=== PATIENT | male | born 1955 | race Caucasian/White ===

== ENCOUNTER → 2016-06-12 | Outpatient (CLI) | payer OTHER ==
[~2016-06-12] MED LIST: MRPIS2 IV; XPNIN INH; ZFRI4 IV
[2016-06-12 17:35] LABS: BASO % 0.4 %; BASO ABS # 0.04 K/uL (0-0.2); COMPLETE YES; EOS % 2.3 %; HEMATOCRIT 44.7 % (42-52); IG% 0.4 %; LYMPH % 34.4 %; LYMPH ABS # 3.14 K/uL (1.2-3.4); MEAN CELL VOLUME 86.3 fL (80-100); MEAN CORPUSCULAR HEMOGLOBIN 29.7 pg (25-34); MEAN CORPUSCULAR HGB CONC 34.5 g/dl (32-36); MEAN PLATELET VOLUME 10.4 fL (7.4-10.4); MONO % 10.8 %; NEUT % 51.7 %; PLATELET COUNT 238 K/uL (130-400); RED BLOOD COUNT 5.18 M/uL (4.7-6.1); WHITE BLOOD COUNT 9.13 K/uL (4.8-10.8)
[2016-06-12 17:53] LABS: ALT/SGPT 64 U/L (12-78); AST/SGOT 43 U/L (15-37); BLOOD UREA NITROGEN 15 mg/dl (7-18); BUN/CREATININE RATIO 12.7 (10-20); CALCIUM 9.4 mg/dl (8.5-10.1); CARBON DIOXIDE 27 mmol/L (21-32); CHLORIDE 106 mmol/L (98-107); GLUCOSE 95 mg/dl (70-99); POTASSIUM 4.1 mmol/L (3.5-5.1); SODIUM 138 mmol/L (136-145)
[2016-06-12 18:04] LABS: ALB/GLOB RATIO 1.1 (0.9-2); ALKALINE PHOSPHATASE 88 U/L (45-117); CHOLESTEROL 201 mg/dl (0-200); CHOLESTEROL/HDL RATIO 3.9; HDL CHOLESTEROL 52 mg/dl; LDL CHOLESTEROL CALCULATED 117 mg/dl; TRIGLYCERIDES 162 mg/dl (0-150); VERY LOW DENSITY LIPOPROT CALC 32 mg/dl
[2016-06-13 07:25] LABS: ESTIMATED AVERAGE GLUCOSE 108 mg/dl; HA1C FLAG Normal (Normal)
== END | disposition home or self-care (01) ==
LOC: C.LABBFT 13:14
PROVIDERS: ATTEND Internal Medicine
DX: K76.0 Fatty (change of) liver, not elsewhere classified (principal); R03.0 Elevated blood-pressure reading, without diagnosis of hypertension; R79.9 Abnormal finding of blood chemistry, unspecified; R73.01 Impaired fasting glucose; E11.9 Type 2 diabetes mellitus without complications; E78.5 Hyperlipidemia, unspecified; Z12.5 Encounter for screening for malignant neoplasm of prostate; E87.6 Hypokalemia

== ENCOUNTER 2017-04-14 23:18 | Emergency (ER) | payer OTHER ==
[~2017-04-14] VITALS: Ht 175.3 cm; Wt 90.3 kg
[2017-04-14 23:20] VITALS: Ht 175.3 cm; Wt 90.3 kg
[2017-04-14] MEDS ORDERED: ONDANSETRON INJ 2 MG/ML 2 ML VIAL IV STA (23:40)
[2017-04-14] MEDS ORDERED: SODIUM CHLORIDE 0.9% 500ML 500 ML IV STA (23:40)
[2017-04-14] MEDS ORDERED: MoRPHine SULFATE 4 MG/ML 1 ML CARP\\VIAL IV STA (23:40)
[2017-04-15] MEDS ORDERED: OPTIRAY 320 IV PRN
[2017-04-15 00:04] LABS: BASO % 0.3 %; BASO ABS # 0.05 K/uL (0-0.2); EOS % 0.1 %; EOS ABS # 0.02 K/uL (0-0.5); HEMATOCRIT 46.3 % (42-52); HEMOGLOBIN 16.2 g/dL (14.0-18.0); LYMPH % 8.3 %; LYMPH ABS # 1.63 K/uL (1.2-3.4); MEAN CELL VOLUME 85.3 fL (80-100); MEAN CORPUSCULAR HEMOGLOBIN 29.8 pg (25-34); MEAN PLATELET VOLUME 10.2 fL (7.4-10.4); MONO % 5.9 %; MONO ABS # 1.17 K/uL (0.11-0.59); NEUT % 84.9 %; NEUT ABS # 16.73 K/uL (1.4-6.5); PLATELET COUNT 241 K/uL (130-400); RED CELL DISTRIBUTION WIDTH CV 13.3 % (11.5-14.5); RED CELL DISTRIBUTION WIDTH SD 41.5 fL (36.4-46.3)
[2017-04-15 00:11] LABS: ISTAT CREATININE 1.2 mg/dl (0.6-1.3); ISTAT IONIZED CALCIUM 1.26 mmol/l (1.12-1.32); ISTAT POTASSIUM 3.8 mEq/L (3.3-5.0)
[2017-04-15] MEDS ORDERED: HYDROmorphone INJ 1 MG/ML SYR IV STA ×3 (00:18→01:59)
[2017-04-15] MEDS ORDERED: HYDROmorphone INJ 1 MG/ML SYR ONE (00:18)
[2017-04-15] MEDS ORDERED: HydrALAZINE HCL 20 MG/ML VIAL IV. STA ×2 (00:19→01:25)
[2017-04-15 00:22] LABS: PTT PATIENT 26.6 SECONDS (21.0-31.0)
[2017-04-15 00:27] LABS: ALBUMIN 4.5 gm/dl (3.4-5.0); ALT/SGPT 63 U/L (12-78); AST/SGOT 34 U/L (15-37); BLOOD UREA NITROGEN 15 mg/dl (7-18); CALCIUM 9.6 mg/dl (8.5-10.1); CARBON DIOXIDE 26 mmol/L (21-32); CREATININE 1.27 mg/dl (0.60-1.40); GLUCOSE 141 mg/dl (70-99); LIPASE 90 U/L (73-393); SODIUM 135 mmol/L (136-145)
[2017-04-15 00:32] LABS: ALKALINE PHOSPHATASE 81 U/L (45-117); TOTAL PROTEIN 8.3 gm/dl (6.4-8.2)
[2017-04-15] MEDS ORDERED: SITA100T3 PO (00:43)
[2017-04-15] MEDS ORDERED: PANT40TA PO (00:44)
[2017-04-15] MEDS ORDERED: PANTOprazole INJ 40 MG in SYRINGE 0 ML IV ONE (01:30)
[2017-04-15] MEDS ORDERED: SODIUM CHLORIDE 0.9% 1000ML 1,000 ML IV STA ×2 (01:37→02:18)
[2017-04-15] MEDS ORDERED: ONDANSETRON INJ 2 MG/ML 2 ML VIAL IV STA (01:59)
--- NOTE | 2017-04-15 02:11 | EMERGENCY ROOM VISIT NOTE ---
History First contact with patient: 23:35 Chief Complaint: ABDOMINAL PAIN Stated Complaint: SEVERE ABD PAIN,RADIATING TO BACK,NAUSEA Nursing Triage Summary: Pt reports diffuse abdominal pain that radiates into his back starting at 1600 today while sweeping. Denies N,V, and diarrhea. Hx of diverticulitis with abcess and was hospitalized for 6mo in [place]. Last BM today and was 'normal'. Took two vicodin at 1900. History of Present Illness The patient is a 61 year old male who presents to the Emergency Room with complaints of severe epigastric pain since 4 PM that radiates to his back with diaphoresis. Patient has a history of esophageal rupture with abscess. This feels somewhat similar. Pain currently 10 out of 10. Nothing makes it better or worse. Patient states he just finished eating a fiber one gummy when the symptoms started this afternoon. There is no trauma to the region. No prior heart disease. He had a surgery done at [facility] by Dr. Escalera. He was hospitalized for several months in February 2014. Patient does have diabetes. No heart disease. No recent endoscopy. He takes Protonix 40 mg twice daily. Patient denies fevers, diarrhea, cold symptoms, black or blood in the stool. Review of Systems An 10 system review of systems was completed with positives and pertinent negatives listed in the HPI. Past Medical/Surgical History Medical Problems: (1) Diabetes Esophageal rupture, left lobectomy, multiple esophageal thoracic surgery secondary to the esophageal rupture, reflux Family History Diabetes mellitus Hypertension Social History Smoking Status: Current Some Day Smoker Alcohol Use: occasionally Marital Status: Housing Status: lives with significant other Occupation Status: employed Current/Historical Medications Scheduled Pantoprazole (Protonix), 40 MG PO DAILY Sitagliptin Phosphate (Januvia), 100 MG PO DAILY Physical Exam Vital Signs Date Time Temp Pulse Resp B/P (MAP) Pulse Ox O2 Delivery O2 Flow Rate FiO2 04/15/17 01:43 100 20 186/95 97 Nasal Cannula 2.0 04/15/17 01:16 89 20 189/93 97 Nasal Cannula 2.0 04/15/17 00:38 88 20 214/109 98 Room Air 04/15/17 00:18 61 04/15/17 00:17 60 20 223/120 96 Room Air 04/14/17 23:20 36.5 51 18 212/85 98 Room Air Physical Exam VITALS: Vitals are noted on the nurse's note and reviewed by myself. Vital signs hypertensive GENERAL: Pleasant male in obvious pain, in no acute distress, nondiaphoretic, well-developed well-nourished. SKIN: The skin was without rashes, erythema, edema, or bruising. There is no tenting of the skin. Capillary reflex less than 2 seconds. HEAD: Normocephalic atraumatic. EARS: External auditory canals clear, tympanic membranes pearly marie without erythema or effusion bilaterally. EYES: Pupils equal round and reactive to light and accommodation. Conjunctivae without injection, sclerae without icterus. Extraocular movements intact. NOSE: Patent, turbinates without inflammation or discharge. MOUTH: Mucous membranes moist. Pharynx without erythema or exudate. Uvula midline. Airway patent. Tongue does not deviate. NECK: Supple without nuchal rigidity. No lymphadenopathy. No thyromegaly. Cervical spine is nontender. No JVD. HEART: Regular rate and rhythm LUNGS: Clear to auscultation bilaterally without wheezes, rales or rhonchi. No dullness to percussion. No retractions or accessory muscle use. ABDOMEN: Positive bowel sounds x 4. Normal tympanic percussion. Soft, tender to palpation epigastric region, no CVA tenderness, without masses or organomegaly. Bradford sign negative. No guarding or rebound tenderness. MUSCULOSKELETAL: No muscle atrophy, erythema, or edema noted. +2 peripheral pulses throughout NEURO: Patient was alert and oriented to person place and time. Normal sensation to light and sharp touch. No focal neurological deficits. Medical Decision & Procedures Laboratory Results 04/14/17 23:53 Red Blood Count 5.43, Mean Corpuscular Volume 85.3, Mean Corpuscular Hemoglobin 29.8, Mean Corpuscular Hemoglobin Concent 35.0, Mean Platelet Volume 10.2, Neutrophils (%) (Auto) 84.9, Lymphocytes (%) (Auto) 8.3, Monocytes (%) (Auto) 5.9, Eosinophils (%) (Auto) 0.1, Basophils (%) (Auto) 0.3, Neutrophils # (Auto) 16.73, Lymphocytes # (Auto) 1.63, Monocytes # (Auto) 1.17, Eosinophils # (Auto) 0.02, Basophils # (Auto) 0.05 04/14/17 23:53 Test 04/14/17 23:53 04/14/17 23:54 04/14/17 23:56 04/14/17 23:59 White Blood Count 19.70 K/uL (4.8-10.8) Red Blood Count 5.43 M/uL (4.7-6.1) Hemoglobin 16.2 g/dL (14.0-18.0) Hematocrit 46.3 % (42-52) Mean Corpuscular Volume 85.3 fL (80-100) Mean Corpuscular Hemoglobin 29.8 pg (25-34) Mean Corpuscular Hemoglobin Concent 35.0 g/dl (32-36) Platelet Count 241 K/uL (130-400) Mean Platelet Volume 10.2 fL (7.4-10.4) Neutrophils (%) (Auto) 84.9 % Lymphocytes (%) (Auto) 8.3 % Monocytes (%) (Auto) 5.9 % Eosinophils (%) (Auto) 0.1 % Basophils (%) (Auto) 0.3 % Neutrophils # (Auto) 16.73 K/uL (1.4-6.5) Lymphocytes # (Auto) 1.63 K/uL (1.2-3.4) Monocytes # (Auto) 1.17 K/uL (0.11-0.59) Eosinophils # (Auto) 0.02 K/uL (0-0.5) Basophils # (Auto) 0.05 K/uL (0-0.2) RDW Standard Deviation 41.5 fL (36.4-46.3) RDW Coefficient of Variation 13.3 % (11.5-14.5) Immature Granulocyte % (Auto) 0.5 % Immature Granulocyte # (Auto) 0.10 K/uL (0.00-0.02) Prothrombin Time 10.3 SECONDS (9.0-12.0) Prothromb Time International Ratio 1.0 (0.9-1.1) Activated Partial Thromboplast Time 26.6 SECONDS (21.0-31.0) Partial Thromboplastin Ratio 1.0 Est Creatinine Clear Calc Drug Dose 66.2 ml/min Estimated GFR () 69.2 Estimated GFR (Non- 59.7 BUN/Creatinine Ratio 11.7 (10-20) Calcium Level 9.6 mg/dl (8.5-10.1) Total Bilirubin 0.5 mg/dl (0.2-1) Direct Bilirubin 0.1 mg/dl (0-0.2) Aspartate Amino Transf (AST/SGOT) 34 U/L (15-37) Alanine Aminotransferase (ALT/SGPT) 63 U/L (12-78) Alkaline Phosphatase 81 U/L (45-117) Troponin I < 0.015 ng/ml (0-0.045) Total Protein 8.3 gm/dl (6.4-8.2) Albumin 4.5 gm/dl (3.4-5.0) Lipase 90 U/L (73-393) Bedside Lactic Acid Venous 2.19 mmol/L (0.90-1.70) Bedside Troponin I < 0.030 ng/ml (0-0.045) Bedside Hemoglobin 16.7 g/dl (14.0-18.0) Bedside Hematocrit 49 % (42-52) Bedside Sodium 138 mEq/L (135-144) Bedside Potassium 3.8 mEq/L (3.3-5.0) Bedside Chloride 97 mEq/L (101-112) Bedside Total CO2 28 mEq/l (24-31) Anion Gap 18.0 mmol/L (16-25) Bedside Blood Urea Nitrogen 16 mg/dl (7-18) Bedside Creatinine 1.2 mg/dl (0.6-1.3) Bedside Glucose (other) 145 mg/dl (70-99) Bedside Ionized Calcium (Lani) 1.26 mmol/l (1.12-1.32) Medications Administered Medications (Trade) Dose Ordered Sig/[facility] Route Start Time Stop Time Status Last Admin Dose Admin Morphine Sulfate (MoRPHine SULFATE INJ) 4 mg NOW STAT IV 04/14/17 23:40 04/14/17 23:45 DC 04/14/17 23:57 4 MG Ondansetron HCl (Zofran Inj) 4 mg NOW STAT IV 04/14/17 23:40 04/14/17 23:45 DC 04/14/17 23:57 4 MG Sodium Chloride 500 ml @ 999 mls/hr Q31M STAT IV 04/14/17 23:40 04/15/17 00:10 DC 04/14/17 23:40 999 MLS/HR Hydromorphone HCl (Dilaudid Inj) 1 mg STK-MED ONCE .ROUTE 04/15/17 00:18 04/15/17 00:19 DC 04/15/17 00:18 1 MG Hydralazine HCl (HydrALAZINE INJ) 10 mg NOW STAT IV. 04/15/17 00:19 04/15/17 00:20 DC 04/15/17 00:26 10 MG Hydromorphone HCl (Dilaudid Inj) 1 mg NOW STAT IV 04/15/17 00:46 04/15/17 00:47 DC 04/15/17 00:50 1 MG Pantoprazole Sodium 40 mg/ Syringe 10 ml @ 5 mls/min NOW ONCE IV 04/15/17 01:30 04/15/17 01:31 DC 04/15/17 01:33 5 MLS/MIN Hydralazine HCl (HydrALAZINE INJ) 10 mg NOW STAT IV. 04/15/17 01:25 04/15/17 01:26 DC 04/15/17 01:33 10 MG Sodium Chloride 1,000 ml @ 75 mls/hr [id number] STAT IV 04/15/17 01:37 04/15/17 14:56 04/15/17 01:37 75 MLS/HR Hydromorphone HCl (Dilaudid Inj) 1 mg NOW STAT IV 04/15/17 01:59 04/15/17 02:01 DC 04/15/17 02:07 1 MG Ondansetron HCl (Zofran Inj) 4 mg NOW STAT IV 04/15/17 01:59 04/15/17 02:01 DC 04/15/17 02:06 4 MG ED Course Prior records/ancillary studies reviewed. Triage Nursing notes reviewed. Additional history obtained from family. The patient's history was concerning for epigastric chest pain. Differential diagnosis: Etiologies such as cardiac ischemia, aortic dissection, pulmonary embolism, pneumonia, pneumothorax, musculoskeletal, infections, pericarditis, myocarditis , esophageal rupture, gastrointestinal, as well as others were entertained. Physical examination: As above. ER treatment provided: Morphine, Dilaudid, Zofran, IV fluids, Protonix, hydralazine, Zosyn, daptomycin On reassessment the patient felt better. Diagnostic interpretation by me: FAST exam: No free fluid per my interpretation The electrocardiogram was negative for pathologic change. Poor baseline, normal sinus, normal intervals, no acute ST-T wave changes, normal axis, rate 59. Impression sinus bradycardia to provide a soft The labs revealed leukocytosis, negative troponin, elevated lactic acid and repeat was slightly elevated as patient became tachycardic so repeat lactate was ordered, hyperglycemia without DKA Imaging studies: Chest x-ray with no obvious free air, consolidation or pneumothorax my interpretation CTA CHEST: No aortic dissection or aneurysm. No pulmonary emboli. Severe fluid distention of the entire esophagus could indicate gastroesophageal reflux with esophagitis or achalasia. Postsurgical deformities are noted in the left seventh and eighth ribs. There is soft tissue pleural thickening with calcifications adjacent to the rib anomalies which could be related to postoperative changes. There is a suggestion of a small amount of fluid along the left aspect of the esophagus (series 7 image 184). It is unclear if this fluid extends to the area of pleural thickening. There is oral contrast in the stomach which does not appear to extend into this pleural thickening or possible fluid adjacent to the esophagus. The fluid may be related to inflammation. A small esophageal leak is difficult to exclude based on these findings. Consider esophagram with water-soluble contrast to exclude a tiny leak. No acute airspace opacities. CTA ABDOMEN & PELVIS: Normal abdominal aorta. No aortic dissection or aneurysm. Mild aortic atherosclerosis. No stenosis of the visceral and renal branches. Distended gallbladder with cholelithiasis. No definite gallbladder wall thickening or surrounding fat stranding. If there is concern for acute cholecystitis, consider ultrasound evaluation. No biliary dilatation. Moderate diverticulosis of the sigmoid and descending colon and transverse colon without acute diverticulitis. Cecal bascule is located in the left abdomen. Normal appendix. No bowel obstruction or bowel wall thickening. Radiologist: Gildardo Mccarty MD Consultation: A consultation was placed with the thoracic surgeon at [place], Dr. Blount. The case was discussed and diagnostics were reviewed. The patient was transferred to his facility for further evaluation and treatment for possible esophageal tear/rupture. Patient consented to transfer and was transferred via ALS in stable condition. Exam and history seem concerning for possible esophageal tear/rupture. Patient was started on antibiotics for possible infection from the esophageal tear. He was hydrated as above. Repeat lactate was ordered as patient became slightly tachycardic. Patient was in severe amount of pain. He was hypertensive. He was medicated as above. Blood pressure did improve. FAST exam showed no free fluid. CT was concerning for possible esophageal tear. [facility] was consulted where the patient's original surgery was done and Dr. Blount accepts transfer of the patient. Patient was reevaluated numerous times. He remained stable. He was not hypoxic. He was not tachycardic. He agrees to treatment plan of transfer to specialty [facility] for further evaluation and treatment. By the evaluation outlined above emergent etiologies such as cardiac ischemia, aortic dissection, pulmonary embolism, pneumonia, pneumothorax, pericarditis, myocarditis, as well as others were deemed relatively unlikely. The pt informed about the findings as listed above. All questions were answered and pleased with the treatment. Case reviewed with my attending The chart was completed utilizing [employer] voice recognition software. Grammatical errors, random word insertions, pronoun errors, and incomplete sentences are an occassional consequence of this system due to software limitations, ambient noise, and hardware issues. Any formal questions or concerns about the content, text, or information contained within the body of this dictation should be directly addressed to the physician veterinary assistant for clarification. Medical Decision As above Blood Pressure Screening Patient's blood pressure: Elevated blood pressure Blood pressure disposition: Referred to PCP Impression Primary Impression: Esophageal tear Additional Impressions: Hypertensive urgency Hyperglycemia due to type 2 diabetes mellitus Departure Information Dispostion Transfer Acute Care Facility Condition FAIR Referrals Caesar Fernandez M.D. (PCP) Patient Instructions My [facility] Problem Qualifiers Primary Impression: Esophageal tear Encounter type: initial encounter Qualified Codes: S11.21XA - Laceration without foreign body of pharynx and cervical esophagus, initial encounter
[2017-04-15] MEDS ORDERED: PIPERACILLIN/TAZOBACTAM 4.5 GM/100ML D5W IV STA (02:18)
[2017-04-15] MEDS ORDERED: DAPTOmycin IV 540 MG in SODIUM CHLORIDE 0.9% 50ML 50 ML IV STA (02:18)
[2017-04-15 03:02] VITALS: BP 180/86; PULSE 100; TEMP 36.8; O2SAT 95
--- NOTE | 2017-04-15 07:07 | DIAGNOSTIC IMAGING REPORT ---
CHEST COMBO ANGIO DISSECTION CLINICAL HISTORY: Severe chest/epigastric pain radiating to the back. COMPARISON STUDY: Chest CT dated 02/18/2014 FINDINGS: Unenhanced images were obtained to the chest. The patient was then scanned in a dynamic helical fashion during intravenous administration of 119 cc Optiray 320. MIP imaging was performed. A dose reduction technique was utilized adhering to the principles of ALARA. Unenhanced images reveal coronary artery calcifications. There is no evidence of acute aortic hematoma. Postcontrast images reveal no thyroid masses. There is no evidence of aortic aneurysm or dissection. There are no pulmonary artery filling defects to indicate acute pulmonary embolism. There are no pathologically enlarged axillary, mediastinal, or hilar lymph nodes. There is a mildly dilated fluid-filled esophagus. There is cholelithiasis. There are old left-sided rib fractures. There is left-sided pleural thickening and pleural calcification. There are dependent atelectatic changes. There is no pneumothorax. There is no lobar consolidation. IMPRESSION: 1. No evidence of thoracic aortic aneurysm or dissection 2. No evidence of pulmonary embolism 3. Mildly dilated fluid-filled esophagus 4. Multiple lower left rib deformities with associated pleural thickening and pleural calcification. Electronically signed by: Yrn Franklin M.D. 04/15/2017 7:05 AM Dictated Date/Time: 04/15/2017 7:00 AM
--- NOTE | 2017-04-15 07:08 | DIAGNOSTIC IMAGING REPORT ---
CHEST ONE VIEW PORTABLE CLINICAL HISTORY: 61 years-old Male presenting with CHEST PAIN. TECHNIQUE: Portable upright AP view of the chest was obtained. COMPARISON: 02/14/2014. FINDINGS: Mediastinal surgical clips noted. Cardiac mediastinal silhouette mildly prominent likely due to mildly low lung volumes and hypoventilatory changes. Minimal vague and linear opacities likely present at the lung bases. No other focal opacity. No large effusion or pneumothorax. Degenerative changes of the thoracic spine. Upper abdomen normal. IMPRESSION: 1. Mildly low lung volumes with hypoventilatory changes including bibasilar atelectasis. Electronically signed by: Aftab Peña M.D. 04/15/2017 7:06 AM Dictated Date/Time: 04/15/2017 7:05 AM
--- NOTE | 2017-04-15 07:43 | DIAGNOSTIC IMAGING REPORT ---
ANGIO ABD/PELVIS WITH CONTRAST CLINICAL HISTORY: 61 years-old Male presents with severe epigastric pain which radiates into the back TECHNIQUE: Noncontrast CT abdomen and pelvis was obtained and additionally following the IV administration of 119 cc of Optiray 320, CT angiogram of the abdomen and pelvis was performed from the lung bases the proximal femora. Images are reviewed in the axial, sagittal, and coronal planes. 3-D MIPS images are created and assessed. IV contrast was administered without complication. All measurements were obtained according to NASCET criteria. A dose lowering technique was utilized adhering to the principles of ALARA. CT DOSE: 1718.30 mGy.cm COMPARISON: CTA of the chest of same day, CT abdomen and pelvis 02/12/2014 FINDINGS: CTA: The CTA chest portion of the study is dictated separately. No intramural hematoma identified on the noncontrast scan. Mild atherosclerosis of the abdominal aorta and iliac arteries. There is no abdominal aortic aneurysm or dissection identified. There is mild degree of mixed plaquing at the origin of the superior mesenteric artery causing less than 50% luminal narrowing. The celiac trunk, superior and inferior mesenteric arteries are widely patent. Mild mixed plaquing is present at the origin of the right renal artery without significant narrowing. The bilateral renal arteries are widely patent. The bilateral common and external iliac arteries are widely patent. Mild to moderate degree of mixed plaque involves the bilateral femoral arteries which are widely patent as are the imaged superficial femoral arteries. The imaged IVC and iliac veins appear unremarkable. CT ABDOMEN/PELVIS: Mild subsegmental bibasilar atelectasis. Pleural thickening with pleural calcifications again noted at the level of the left lung base. Imaged inferior cardiac chambers are unremarkable. There is diffuse fatty infiltration of the liver. No focal hepatic mass lesions or intrahepatic biliary ductal dilation identified. Gallbladder is distended measuring up to 11.7 x 5.1 cm containing layering gallstones within the mid lumen and gallbladder neck. No CT evidence to suggest acute cholecystitis. Spleen, pancreas and adrenal glands are within normal limits. Mild nonspecific bilateral perinephric stranding. No renal calculi or obstructive uropathy identified. The ureters, urinary bladder and prostate are unremarkable. No bulky adenopathy. Fluid-filled esophagus redemonstrated. Small duodenal diverticulum. No bowel obstruction or focal bowel wall thickening. Moderate colonic diverticulosis without CT evidence of acute diverticulitis. The cecum is noted within the left midabdomen. The appendix appears normal. Soft tissues are unremarkable. The bones appear intact. Multiple remote healed rib fractures are again seen involving the left hemithorax. IMPRESSION: 1. No acute intra-abdominal or intrapelvic abnormality identified. Normal appendix. 2. Mild mixed plaquing of the aorta and proximal branch vessels without evidence of aneurysm, dissection, high-grade stenosis or proximal branch occlusion. 3. The gallbladder is mildly distended and contains layering gallstones within the mid lumen and gallbladder neck. No definite CT evidence of acute cholecystitis. 4. Hepatic steatosis. 5. Moderate colonic diverticulosis without evidence of acute diverticulitis. 6. Fluid-filled esophagus. The above report was generated using voice recognition software. It may contain grammatical, syntax or spelling errors. Electronically signed by: Evangelista Faulkner M.D. 04/15/2017 7:42 AM Dictated Date/Time: 04/15/2017 7:29 AM
== END 2017-04-15 03:25 | disposition short-term general hospital (02) ==
LOC: C.EDB 23:19 → C.EDA 04-15 03:25
DX: K22.8 Other specified diseases of esophagus (principal); I16.0 Hypertensive urgency; E11.65 Type 2 diabetes mellitus with hyperglycemia; K21.9 Gastro-esophageal reflux disease without esophagitis; F17.200 Nicotine dependence, unspecified, uncomplicated; Z79.84 Long term (current) use of oral hypoglycemic drugs; Z90.2 Acquired absence of lung [part of]; Z83.3 Family history of diabetes mellitus; Z82.49 Family history of ischemic heart disease and other diseases of the circulatory system